=== PATIENT | male | born 1950 | race Caucasian/White ===

== ENCOUNTER → 2017-09-27 | Outpatient (CLI) | payer BC | END | disposition home or self-care (01) | LOC: KCIC MRI 11:35 | DX: M48.02 Spinal stenosis, cervical region (principal); M12.9 Arthropathy, unspecified; M25.78 Osteophyte, vertebrae; R60.0 Localized edema; R20.0 Anesthesia of skin | CPT/HCPCS: 72141 ==

== ENCOUNTER → 2017-10-15 | Outpatient (CLI) | payer BC ==
[~2017-10-15] MED LIST: IOHEXOL 180 MG/ML 10 ML VIAL.; methylPREDNISolone ACETATE 40 MG/ML VIAL.; methylPREDNISolone ACETATE 80 MG/ML VIAL.
== END | disposition home or self-care (01) ==
LOC: PNCL 13:11
DX: M50.123 Cervical disc disorder at C6-C7 level with radiculopathy (principal); M48.02 Spinal stenosis, cervical region; K21.9 Gastro-esophageal reflux disease without esophagitis; M19.90 Unspecified osteoarthritis, unspecified site; I10 Essential (primary) hypertension
CPT/HCPCS: 62321; J1030; J1040

== ENCOUNTER → 2017-10-29 | Outpatient (CLI) | payer BC | END | disposition home or self-care (01) | LOC: PNCL 14:20 | DX: M50.123 Cervical disc disorder at C6-C7 level with radiculopathy (principal); M48.02 Spinal stenosis, cervical region | CPT/HCPCS: 62321; J1030; J1040; Q9965 ==

== ENCOUNTER → 2018-05-17 | Outpatient (CLI) | payer BC ==
[~2018-05-17] MED LIST changes: +ACET325T9 PO; +ATOR20TA58 PO; +GABA600T2 PO; -IOHEXOL 180 MG/ML 10 ML VIAL.; +IOHEXOL 180 MG/ML 10 ML VIAL. ONE; +LIDOCAINE 2% PF 2ML VIAL. ONE; +LISI1TAB3 PO; +OMEP40CA5 PO; +TAMS0.4C2 PO; +TRAM50TA PO; -methylPREDNISolone ACETATE 40 MG/ML VIAL.; +methylPREDNISolone ACETATE 40 MG/ML VIAL. ONE; -methylPREDNISolone ACETATE 80 MG/ML VIAL.; +methylPREDNISolone ACETATE 80 MG/ML VIAL. ONE
--- NOTE | 2018-05-17 20:38 | PAIN ---
DATE OF SERVICE: 05/17/2018 DIAGNOSES: Cervical radiculopathy with cervical degenerative disk disease and cervical spinal stenosis. HISTORY OF PRESENT ILLNESS: The patient is a 68-year-old male who returns for followup status post cervical epidural steroid injections x 2, last seen 10/29/2017. The patient reports he did very well with this last injection about 80% improvement, especially for the first month or so. The patient reports pain is returning with some numbness in both of his upper extremities, somewhat worse on the left than the right, but the pain is more on the right shoulder and right arm than the left side. The patient reports no new motor or sensory deficits, no new bowel or bladder incontinence or other complaints. The patient reports his pain is a 7 on a scale of 10 at its worst, 6 on average, 5 at its least, and is a 5 today. The patient reports it is aching, tingling, currently more constant in the neck, but with good increased range of motion after his last injection with increased pain now in the right arm in the left hand. The patient reports it wakes him from sleep about every 4-5 hours, has to reposition to get back to sleep. PHYSICAL EXAMINATION: VITAL SIGNS: The patient's blood pressure is 139/81, pulse 59, respirations 18, temperature 98.3 degrees Fahrenheit, height is 5 feet 10 inches, weighs 208 pounds. GENERAL: The patient is awake, alert, oriented, appropriate, very pleasant demeanor. HEENT: Shows normocephalic, atraumatic. Extraocular movements are intact, symmetrical. Oral cavity: Mucous membranes moist and pink. Dentition is intact. NECK: Shows anterior throat supple without palpable lymphadenopathy noted. Swallow reflex is symmetrical. CHEST: Shows normal on inspection. Breath sounds clear to auscultation bilaterally. HEART: Shows S1, S2 clear. No murmurs auscultated. ABDOMEN: Soft, nontender, nondistended. No palpable organomegaly is noted. BACK: Shows spine grossly in the midline. Cervical paraspinous muscle shows symmetrical on inspection with normal cervical lordotic curvature and thoracic kyphotic curvature. Cervical paraspinous muscles are tender with palpation, but only diffusely in the inferior aspect of the cervical paraspinous musculature bilaterally, but symmetrical without trigger points, without radiation. The patient has full rotational motion of cervical spine including right and left lateral rotation greater than 45 degrees as well as full extension, full forward flexion without significant difficulty, but has superior medial trapezius slightly more tender on the right than the left, but again symmetrical without atrophy, hypertrophy or asymmetry. EXTREMITIES: Upper extremities show deep tendon reflexes 2+ in the biceps and triceps tendons. Motor exam is strong with practice specialist strength rated at 5/5 and equal. Peripheral pulses are 2+ radial. No peripheral edema is noted. Options were discussed with the patient. The patient's old chart was reviewed as is his current medication regimen updated. Current review of systems is updated today as well and we will proceed with a first in this series of cervical epidural steroid injection today with fluoroscopic guidance. Risks were again discussed including, but not limited to bleeding, infection, possibility of epidural hematoma and subsequent neurological compromise, dural puncture, headaches, spinal cord and/or nerve damage, side effects of steroid medication and poor results regarding pain control. The patient understands and wished to proceed. The patient will return to the clinic in approximately 2 weeks for followup, was counseled on return appointment, activity level and side effects to be aware of. DIAGNOSES: Cervical radiculopathy, cervical spinal stenosis, cervical degenerative disk disease. PROCEDURE: Cervical epidural steroid injection, translaminar approach at C6-C7 level using C-arm fluoroscopic guidance under sterile prep and drape using local anesthetic. MEDICATION INJECTED: A total of 120 mg Depo-Medrol plus 5 mL of preservative-free normal saline and 2 mL of Isovue for contrast. CONDITION AT DISCHARGE: Stable. The patient tolerated the procedure well, had no complications. LURDES JOSHI MD DR: DIPAK/master JOB#: [id number] / [id number]
== END | disposition home or self-care (01) ==
LOC: PNCL 09:00
PROVIDERS: ATTEND Anesthesiology
DX: M50.123 Cervical disc disorder at C6-C7 level with radiculopathy (principal); M48.02 Spinal stenosis, cervical region
CPT/HCPCS: 62321; J1030; J1040; J2001; Q9965

== ENCOUNTER → 2018-05-31 | Outpatient (CLI) | payer BC ==
[~2018-05-31] MED LIST changes: -IOHEXOL 180 MG/ML 10 ML VIAL. ONE; -LIDOCAINE 2% PF 2ML VIAL. ONE; -methylPREDNISolone ACETATE 40 MG/ML VIAL. ONE; -methylPREDNISolone ACETATE 80 MG/ML VIAL. ONE
--- NOTE | 2018-05-31 11:05 | KCIC ---
EXAMINATION: Magnetic resonance imaging (MRI) of the cervical spine without contrast 05/31/2018 8:45 AM HISTORY: Cervical radiculopathy. Bilateral upper extremity numbness. TECHNIQUE: Multiplanar multi-weighted MRI of the cervical spine was performed without intravenous contrast using the standard cervical spine protocol. Contrast information: None administered COMPARISON: MRI cervical spine September 27, 2017 FINDINGS: The alignment of the cervical spine is normal. Similar mild edema is identified involving the odontoid, improved since the prior examination. No acute fracture is identified; however, if trauma is suspected, a CT scan would be a more sensitive examination for fractures. The craniocervical junction is normal. The visualized portions of the skull base and the posterior fossa are normal. The spinal cord demonstrates normal signal intensity on all sequences. Disc heights are maintained. Mild multilevel disc desiccation is noted. No soft tissue abnormality is identified. Normal signal voids are present in the vertebral arteries. C2-C3: There is minimal posterior disc osteophyte complex asymmetric to the right. There is mild facet arthropathy. There is mild uncovertebral joint disease. There is mild right neuroforaminal stenosis. There is no spinal canal stenosis. C3-C4: There is a posterior disc osteophyte complex with central disc extrusion, progressed. There is moderate facet arthropathy. There is mild uncovertebral joint disease. There is moderate bilateral neuroforaminal stenosis. There is moderate spinal canal stenosis, exacerbated by ligamentum flavum infolding. No deformity of the cord is visualized. C4-C5: There is a posterior disc osteophyte complex. There is severe bilateral facet arthropathy. There is moderate uncovertebral joint disease. There is severe bilateral neuroforaminal stenosis. There is mild spinal canal stenosis. C5-C6: Posterior disc osteophyte complex. There is severe left and moderate right facet arthropathy. There is moderate uncovertebral joint disease. There is severe neuroforaminal stenosis. There is no spinal canal stenosis. C6-C7: There is a posterior disc osteophyte complex. There is severe facet arthropathy. There is severe uncovertebral joint disease. There is no neuroforaminal stenosis. There is no spinal canal stenosis. C7-T1: The disk is normal in configuration. There is moderate facet arthropathy. There is mild uncovertebral joint disease. There is moderate to severe bilateral neuroforaminal stenosis. There is no spinal canal stenosis. IMPRESSION: 1. Edema involving the dens appears improved with minimal residual compared to prior examination. 2. Moderate multilevel degenerative changes appears similar with worsening disc extrusion at C3-C4 resulting in now moderate spinal canal stenosis. Ligamentum flavum infolding exacerbates degree of stenosis. Electronically signed by: Lenore Tracey MD (05/31/2018 11:01 AM) [facility]
== END | disposition home or self-care (01) ==
LOC: KCIC MRI 08:22
PROVIDERS: ATTEND Anesthesiology
DX: M50.11 Cervical disc disorder with radiculopathy, high cervical region (principal); M48.02 Spinal stenosis, cervical region
CPT/HCPCS: 72141

== ENCOUNTER → 2018-06-21 | Outpatient (CLI) | payer BC ==
[~2018-06-21] MED LIST changes: +IOHEXOL 180 MG/ML 10 ML VIAL. ONE; +LIDOCAINE 2% PF 2ML VIAL. ONE; +methylPREDNISolone ACETATE 40 MG/ML VIAL. ONE; +methylPREDNISolone ACETATE 80 MG/ML VIAL. ONE
--- NOTE | 2018-06-21 23:51 | PAIN ---
DATE OF SERVICE: 06/21/2018 PROGRESS NOTE FOR PAIN CLINIC DIAGNOSES: Cervical radiculopathy with cervical degenerative disk disease and cervical spinal stenosis. HISTORY OF PRESENT ILLNESS: The patient is a 68-year-old male who returns for followup status post cervical epidural steroid injection x 1 with only about 10% improvement, although after a second injection earlier this year, he did do well with 80% improvement at that time. The patient reports still significant pain in the base of the neck, shoulders, more on the right upper extremity with tingling and numbness in the right arm as well. The patient did have a new MRI scan. We did cover that with him showing some increased changes at C3-C4. Otherwise, fairly stable from previous exam of September 2017. The patient reports still significant pain in the base of the neck, shoulder, especially in the right upper extremity with numbness and tingling. In the right arm and hand, the patient reports tingling, cramping, constant become more aching in quality as well as aching in the base of the neck. The patient reports it is an 8 on a scale of 10, 6 on average, 6 at its least and is a 6 today. The patient reports no new motor or sensory deficits. No new bowel or bladder incontinence or other complaints. PHYSICAL EXAMINATION: VITAL SIGNS: The patient's blood pressure is 130/82, pulse 75, respirations are 18, temperature 98.2 degrees Fahrenheit. Height is 5 feet 10 inches, weight is 202 pounds. GENERAL: The patient is awake, alert, oriented, appropriate, very pleasant demeanor. HEENT: Head shows normocephalic, atraumatic. Extraocular movements are intact and symmetrical. Oral cavity: Mucous membranes moist and pink. Dentition is intact. NECK: Shows anterior throat supple without palpable lymphadenopathy noted. Swallow reflex is symmetrical. CHEST: Shows normal on inspection. Breath sounds clear to auscultation bilaterally. HEART: Shows S1, S2 clear. No murmurs auscultated. ABDOMEN: Soft, nontender, nondistended. No palpable organomegaly noted. BACK: Shows spine grossly in the midline. Cervical lordotic curvature is maintained, as is thoracic lordotic curvature and lumbar lordotic curvature. Cervical paraspinous musculature shows symmetrical on inspection, on palpation shows some moderate tenderness diffusely, but only diffusely in the inferior aspect of the cervical paraspinous muscles and no more into the right superior medial trapezius in the left, but without atrophy without trigger points, without radiation. Neck shows good rotational motion of the cervical spine both laterally as well as extension and flexion without significant increase in pain. EXTREMITIES: The patient's upper extremities and deep tendon reflexes 2+ at the biceps and tricep tendons. Motor exam is strong with 5/5 assistant merchandiser strength, bicep and triceps flexion. Peripheral pulses are 2+ in radial distribution. No peripheral edema is noted. Options were discussed with the patient. The patient's old chart was reviewed. His current medication regimen. Current review of systems updated today as well. We will proceed with a cervical epidural steroid injection second in a series of fluoroscopic guidance. Risks were again discussed including, but not limited to, bleeding, infection, possibility of epidural hematoma and subsequent neurologic compromise, dural puncture, headaches, spinal cord and/or nerve damage, side effects of steroid medication and poor results regarding pain control. The patient understands and wished to proceed. The patient will return to the clinic in approximately 2 weeks for followup, was counseled as to return appointment, activity level and side effects to be aware of. DIAGNOSES: Cervical radiculopathy with cervical degenerative disk disease and cervical spinal stenosis. PROCEDURE: Cervical epidural steroid injection, translaminar approach at C6-C7 level using C-arm fluoroscopic guidance under sterile prep and drape using local anesthetic. MEDICATIONS INJECTED: A total of 120 mg Depo-Medrol plus 10 mL of preservative-free normal saline and 2 mL of Isovue for contrast. CONDITION AT DISCHARGE: Stable. The patient tolerated procedure well, had no complications. LURDES JOSHI MD DR: DIPAK/master JOB#: [id number] / [id number]
== END | disposition home or self-care (01) ==
LOC: PNCL 09:02
PROVIDERS: ATTEND Anesthesiology
DX: M50.123 Cervical disc disorder at C6-C7 level with radiculopathy (principal); M48.02 Spinal stenosis, cervical region
CPT/HCPCS: 62321; J1030; J1040; J2001; Q9965

== ENCOUNTER → 2018-11-08 | Outpatient (CLI) | payer OTHER ==
[~2018-11-08] MED LIST changes: -GABA600T2 PO; +GABA600T7 PO; -IOHEXOL 180 MG/ML 10 ML VIAL. ONE; -LIDOCAINE 2% PF 2ML VIAL. ONE; -methylPREDNISolone ACETATE 40 MG/ML VIAL. ONE; -methylPREDNISolone ACETATE 80 MG/ML VIAL. ONE
--- NOTE | 2018-11-08 20:49 | PAIN ---
DATE OF SERVICE: 11/08/2018 PROGRESS NOTE FOR PAIN CLINIC DIAGNOSES: Cervical radiculopathy with cervical spinal stenosis and cervical degenerative disk disease. HISTORY OF PRESENT ILLNESS: The patient is a 68-year-old male who returns for followup status post cervical epidural steroid injection, most recently 06/21/2018. The patient did very well with an 80% improvement in the pain in his neck and right upper extremity. The patient reports it is beginning to return now over the past month or so in the right shoulder, right posterior upper arm, anterior arm, biceps and anterior forearm, into the thumb and first and second fingers on the right hand. It is aching and numbness, dull at times, tingling pain in the arm with burning and radiating pain shooting into the arm itself on the right side. The patient reports some pain in the base of the neck bilaterally, but worse on the right. The patient reports it is a 7 on a scale of 10 at its worst, 7 on average and a 5 at its least. The patient reports it is 7 today. He reports no loss of motor function, but significant fatigability with use of the right upper extremity and has been dropping items with his right hand frequently, especially small items such as tools and glasses and cups. The patient reports no significant pain on the left side, but occasionally some radiating pain in the left shoulder. The patient reports no new changes. The patient reports the pain awakens him from sleep at night about every 4-5 hours. He can usually reposition but he lies on his right side. It does keep him from sleeping. PHYSICAL EXAMINATION: VITAL SIGNS: The patient's blood pressure is 145/78, pulse 77, respirations 18, temperature 98.1 degrees Fahrenheit, height is 5 feet 10 inches and weight is 198 pounds. GENERAL: The patient is awake, alert, oriented, appropriate, very pleasant demeanor. HEENT: Head shows normocephalic, atraumatic. Extraocular movements are intact and symmetrical. Oral cavity: Mucous membranes moist and pink. Dentition is intact. NECK: Shows anterior throat supple without palpable lymphadenopathy noted. Swallow reflex is symmetrical. CHEST: Shows normal with inspection. Breath sounds clear to auscultation bilaterally. HEART: Shows S1, S2 clear. No murmurs auscultated. ABDOMEN: Soft, nontender, nondistended. No palpable organomegaly is noted. No rebound or guarding demonstrated. BACK: Shows spine grossly in the midline, normal-appearing cervical lordotic curvature, thoracic kyphotic curvature and lumbar lordotic curvature. The patient's neck shows good rotational motion with some moderate tenderness with extension, but not with forward flexion. Right and left lateral rotation is performed without significant difficulty past 45 degrees closer to 90 degrees without significant pain reported. EXTREMITIES: Upper extremities show deep tendon reflexes 2+ in the biceps and triceps tendons. Motor exam is 5/5 on the left and 4/5 on the right with physiology teacher strength, bicep and tricep flexion likewise is 4/5 right, 5/5 on the left. Peripheral pulses are 2+ radial distribution. No peripheral edema is noted. Shoulder shrug is strong and intact with some moderate tenderness with palpation with resistance on the right side only, but without loss of strength with resistance. This is true with abduction of the shoulder to 90 degrees. Moderate pain with resistance on the right, but not with the left and without loss of strength on resistance. Options were discussed with the patient. The patient's old chart was reviewed as his current medication regimen updated. Current review of systems updated today as well and we will preauthorize the patient for a cervical epidural steroid injection. He did very well with his last injection, 80% improvement of radicular pain following a C6 and C7 dermatomal distribution of the right arm. We will plan on a C6-C7 translaminar cervical epidural steroid injection on return. The patient will continue to do some strengthening and stretching exercises. He can do his mobility exercises with his neck and shoulders as well. We will encourage him to keep doing this. Also, the patient did have physical therapy, but it has been some time ago, but still does exercises from those by his report. The patient was given a Medrol Dosepak in the meantime as well with instructions of side effects to be aware of and see if this may help decrease the pain while insurance preauthorization is obtained. LURDES JOSHI MD DR: DIPAK/master JOB#: [id number] / [id number]
== END | disposition home or self-care (01) ==
LOC: PNCL 09:41
PROVIDERS: ATTEND Anesthesiology
DX: M48.02 Spinal stenosis, cervical region (principal); M50.10 Cervical disc disorder with radiculopathy, unspecified cervical region
CPT/HCPCS: G0463

== ENCOUNTER → 2018-11-21 | Outpatient (CLI) | payer OTHER ==
[~2018-11-21] MED LIST changes: +IOHEXOL 180 MG/ML 10 ML VIAL. ONE; +methylPREDNISolone ACETATE 40 MG/ML VIAL. ONE; +methylPREDNISolone ACETATE 80 MG/ML VIAL. ONE
--- NOTE | 2018-11-21 22:27 | PAIN ---
DATE OF SERVICE: 11/21/2018 PROGRESS NOTE FOR PAIN CLINIC DIAGNOSES: Cervical radiculopathy with cervical spinal stenosis and cervical degenerative disk disease. HISTORY OF PRESENT ILLNESS: The patient is a 68-year-old male who returns for followup status post cervical epidural steroid injections most recently on 06/21/2018. The patient did well with these. He had been waiting for preauthorization with his insurance provider and he has obtained this now after his last visit, which was 11/08/2018. Still with pain in the base of the neck, right shoulder, right upper extremity, right arm with weakness and fatigue in the right arm as well. The patient reports his pain is a 9 on a scale of 10 at its worst, 8 on average, 6 at its least and it is an 8 today. The patient reports it is tingling, aching, sharp, shooting, becoming more constant, more noticeable in the right arm with repetitive motions, lifting items, any weightbearing at all and had to have his left arm help raise his right arm when he is using it for any activities. The patient reports it awakens him from sleep about every 4 hours. Reports no new motor or sensory deficits. No new bowel or bladder incontinence or other complaints. PHYSICAL EXAMINATION: VITAL SIGNS: The patient's blood pressure is 119/75, pulse 75, respirations 18 and temperature 98.2 degrees Fahrenheit. Height is 5 feet 10 inches, weighs 199 pounds. GENERAL: The patient is awake, alert, oriented and appropriate. He has very pleasant demeanor. HEENT EXAMINATION: Shows normocephalic, atraumatic. Extraocular movements are intact and symmetrical. Oral cavity, mucous membranes moist and pink. Dentition is intact. NECK: Shows anterior throat supple, without palpable lymphadenopathy noted. Swallow reflex is symmetrical. CHEST: Shows normal on inspection. Breath sounds are clear to auscultation bilaterally. HEART: Shows S1, S2 clear. No murmurs auscultated. ABDOMEN: Soft, nontender and nondistended. No palpable organomegaly is noted. No rebound or guarding demonstrated. BACK: Shows spine grossly in the midline. Normal-appearing thoracic kyphosis and lumbar lordotic curvature. Cervical lordotic curvature shows slightly flattened with inspection. On palpation, paraspinous musculature of the cervical distribution shows moderate tenderness, but only diffusely in the low cervical distribution of the paraspinous muscles bilaterally and into the right superior medial trapezius. The patient shows good rotational motion, however, of the cervical spine, both laterally as well as extension and flexion, without significant difficulty. EXTREMITIES: Upper extremities show deep tendon reflexes 2+ in the biceps and triceps tendons. Motor exam is approximately 4 on a scale of 5 on the right and 5/5 on the left. Peripheral pulses are 2+ radial distribution. No peripheral edema is noted bilaterally. Options were discussed with the patient. The patient's old chart was reviewed as was his current medication regimen updated. Current review of systems updated today as well. We will proceed with a cervical epidural steroid injection today with fluoroscopic guidance. Risks were again discussed including, but not limited to bleeding, infection, possibility of epidural hematoma, subsequent neurological compromise, dural puncture, headaches, spinal cord and/or nerve damage, side effects to steroid medication and poor results regarding pain control. The patient understands and wishes to proceed. The patient will return to the clinic in approximately 2 weeks for followup. He was counseled on return appointment, activity level and side effects to be aware of. DIAGNOSES: Cervical radiculopathy, cervical spinal stenosis and cervical degenerative disk disease. PROCEDURE: Cervical epidural steroid injection in translaminar approach at the C6-C7 level using C-arm fluoroscopic guidance under sterile prep and drape using local anesthetic. MEDICATION INJECTED: A total of 120 mg Depo-Medrol plus 5 mL of preservative-free normal saline and 2 mL of Isovue for contrast. CONDITION AT DISCHARGE: Stable. The patient tolerated the procedure well, had no complications. LURDES JOSHI MD DR: DIPAK/master JOB#: [id number] / [id number]
== END | disposition home or self-care (01) ==
LOC: PNCL 14:09
PROVIDERS: ATTEND Anesthesiology
DX: M50.123 Cervical disc disorder at C6-C7 level with radiculopathy (principal); M48.02 Spinal stenosis, cervical region
CPT/HCPCS: 62321; J1030; J1040; Q9965

== ENCOUNTER → 2018-12-05 | Outpatient (CLI) | payer OTHER ==
[~2018-12-05] MED LIST changes: -IOHEXOL 180 MG/ML 10 ML VIAL. ONE; -methylPREDNISolone ACETATE 40 MG/ML VIAL. ONE; -methylPREDNISolone ACETATE 80 MG/ML VIAL. ONE
--- NOTE | 2018-12-05 23:21 | PAIN ---
DATE OF SERVICE: 12/05/2018 DIAGNOSES: Cervical radiculopathy with cervical degenerative disk disease and cervical spinal stenosis. HISTORY OF PRESENT ILLNESS: The patient is a 68-year-old male who returns for followup status post cervical epidural steroid injection x 1. The patient reports about 50% improvement in the neck and bilateral shoulders and upper extremities and is still doing well through this time. It has been about 3 weeks since his last injection, reports the pain can be as high as an 8 on a scale of 10, they average about 7, at its least is 5 and is 5 today. The patient reports it is an aching, dull, tingling, burning, becoming more constant with time in the base of the neck and shoulders, radiating to the upper extremities, right greater than the left into the deltoid, into the bicep as well as into the forearm with some tingling and numbness in the right hand. The patient reports right shoulder is more painful to move than the left one, but it is getting by over the most part. The patient was increasing his activity with greater distances walking, greater ability to do household and work activities. 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 The patient reports no new motor or sensory deficits, no new changes. PHYSICAL EXAMINATION: VITAL SIGNS: The patient's blood pressure is 129/77, pulse 73, respirations are 18, temperature is 98.2 degrees Fahrenheit, height is 5 feet 10 inches, weighs is 198 pounds. GENERAL: The patient is awake, alert, oriented, appropriate. The patient is accompanied by his spouse. HEENT: Head is normocephalic, atraumatic. Extraocular movements are intact and symmetrical. Oral cavity: Mucous membranes moist and pink. Dentition is intact. NECK: Shows anterior throat supple without palpable lymphadenopathy noted. Swallow reflex symmetrical. CHEST: Shows normal on inspection. Breath sounds clear to auscultation bilaterally. HEART: Shows S1, S2 clear. No murmurs auscultated. ABDOMEN: Soft, nontender, nondistended. No palpable organomegaly is noted. No rebound or guarding demonstrated. BACK: Shows spine grossly in the midline, normal-appearing cervical lordotic curvature, some slight increase in thoracic kyphotic curvature. Cervical paraspinous muscle shows symmetrical on inspection. On palpation shows some moderate tenderness diffusely with palpation, but only diffusely in the middle and lower distribution of paraspinous musculature, slightly more on the right than the left. This is true into the superior medial and lateral trapezius on the right with more tenderness, but no trigger points, no atrophy, hypertrophy and no asymmetry. The patient has good rotational motion of cervical spine, both laterally greater than 45 degrees right and left as well as forward flexion and full extension without significant increase in pain. EXTREMITIES: The patient's upper extremities show deep tendon reflexes 2+ in the biceps and triceps tendons. Motor exam is approximately 4 on a scale of 5 on the right with hearing consultant strength and 5/5 on the left. Peripheral pulses are 2+ radial distribution. No peripheral edema is noted bilaterally. Options were discussed with the patient. The patient's old chart was reviewed as was his current medication regimen updated. Current review of systems updated today as well. We will preauthorize the patient for a second cervical epidural steroid injection. He is doing much better, about 50% improvement for the first 3 weeks following the last injection, still has some radicular pain in the C6-C7 dermatomal distribution. We will plan on a C6-C7 translaminar injection #2 once approved. The patient in the meantime will continue doing stretching and strengthening exercises and doing rotation of motion of the shoulders as he has been doing as well as with some massage techniques for the neck. The patient will follow up in approximately 1 week and plan on second cervical epidural steroid injection at that time. LURDES JOSHI MD DR: DIPAK/master JOB#: [id number] / [id number]
== END | disposition home or self-care (01) ==
LOC: PNCL 12:11
PROVIDERS: ATTEND Anesthesiology
DX: M50.10 Cervical disc disorder with radiculopathy, unspecified cervical region (principal); M48.02 Spinal stenosis, cervical region
CPT/HCPCS: G0463

== ENCOUNTER → 2018-12-19 | Outpatient (CLI) | payer MEDICARE, OTHER ==
[~2018-12-19] MED LIST changes: +IOHEXOL 180 MG/ML 10 ML VIAL. ONE; +methylPREDNISolone ACETATE 40 MG/ML VIAL. ONE; +methylPREDNISolone ACETATE 80 MG/ML VIAL. ONE
--- NOTE | 2018-12-20 07:48 | PAIN ---
DATE OF SERVICE: 12/19/2018 PROGRESS NOTE FOR PAIN CLINIC DIAGNOSES: Cervical radiculopathy with cervical degenerative disk disease and cervical spinal stenosis. HISTORY OF PRESENT ILLNESS: The patient is a 68-year-old male who returns for followup status post cervical epidural steroid injection x 1. The patient has been preauthorized for second injection and would like to proceed with that today. The patient reports still pain in the base of the neck and right greater than left upper extremity, shoulder and arm with radiating pain, tingling and numbness in both hands. The patient reports the pain is 8 on a scale of 10 at its worst, 5 on average, 5 at its least and is a 5 today. The patient reports it is aching, tingling feeling more constant with activity, repetitive motion of the upper extremities, reaching over his head with his arms. The patient reports it awakens him from sleep at night at least about every 4 hours or so, usually repositions and get back to sleep. The patient reports no new motor or sensory deficits, no new bowel or bladder incontinence. PHYSICAL EXAMINATION: VITAL SIGNS: The patient on physical exam shows a blood pressure of 117/81, pulse is 77, respirations are 18, temperature 98.3 degrees Fahrenheit, height is 5 feet 10 inches, weight is 197 pounds. GENERAL: The patient is awake, alert, oriented, appropriate, very pleasant demeanor. HEENT: Head shows normocephalic and atraumatic. Extraocular movements are intact and symmetrical. Oral cavity: Mucous membranes are moist and pink. Dentition is intact. NECK: Shows anterior throat is supple without palpable lymphadenopathy noted. Swallow reflex is symmetrical. CHEST: Shows normal on inspection. Breath sounds are clear to auscultation bilaterally. HEART: Shows S1 and S2 clear. No murmurs are auscultated. ABDOMEN: Soft, nontender and nondistended. No palpable organomegaly is noted. No rebound or guarding demonstrated. BACK: Shows spine grossly in the midline. Normal appearing thoracic kyphosis and lumbar lordotic curvature as well as cervical lordotic curvature. Cervical paraspinous muscle shows symmetrical on inspection. With palpation shows some moderate tenderness in the middle and lower distribution of the paraspinous musculature, slightly more to the right than the left, but essentially equal bilaterally. The patient shows good rotational motion of the cervical spine both laterally greater than 45 degrees as well as full extension, full forward flexion without significant pain reported. EXTREMITIES: The patient's upper extremities show deep tendon reflexes 2+ in the biceps, triceps tendons. Motor exam is strong at approximately 4 on a scale of 5 with right manufacturing engineering manager strength and 5/5 on the left. Peripheral pulses are 1+ posterior tibial. No peripheral edema is noted. Options were discussed with the patient. The patient's old chart was reviewed as was his current medication regimen updated. Current review of systems updated today as well. We will proceed with a second in this series of cervical epidural steroid injection today with fluoroscopic guidance. Risks were again discussed including, but not limited to bleeding, infection, possibility of epidural hematoma, subsequent neurological compromise, dural puncture, headaches, spinal cord and/or nerve damage, side effects of steroid medication and poor results regarding pain control. The patient understands and wished to proceed. The patient will return to the clinic in approximately 2 weeks for followup, was counseled as to return appointment, activity level and side effects to be aware of. DIAGNOSES: Cervical radiculopathy with cervical degenerative disk disease and cervical spinal stenosis. PROCEDURE: Cervical epidural steroid injection, translaminar approach at C6-C7 level using C-arm fluoroscopic guidance under sterile prep and drape using local anesthetic. MEDICATION INJECTED: A total of 120 mg Depo-Medrol plus 5 mL of preservative-free normal saline and 2 mL of Isovue for contrast. CONDITION AT DISCHARGE: Stable. The patient tolerated the procedure well and had no complications. LURDES JOSHI MD DR: DIPAK/master JOB#: [id number] / [id number]
== END | disposition home or self-care (01) ==
LOC: PNCL 14:08
PROVIDERS: ATTEND Anesthesiology
DX: M50.123 Cervical disc disorder at C6-C7 level with radiculopathy (principal); M48.02 Spinal stenosis, cervical region
CPT/HCPCS: 62321; J1030; J1040; Q9965

== ENCOUNTER → 2019-08-29 | Outpatient (CLI) | payer OTHER, MEDICARE ==
[~2019-08-29] MED LIST changes: -IOHEXOL 180 MG/ML 10 ML VIAL. ONE; +LISI1TAB23 PO; -LISI1TAB3 PO; +OMEP40CA45 PO; -OMEP40CA5 PO; -methylPREDNISolone ACETATE 40 MG/ML VIAL. ONE; -methylPREDNISolone ACETATE 80 MG/ML VIAL. ONE
--- NOTE | 2019-08-29 11:44 | PAIN ---
DATE OF SERVICE: 08/29/2019 PROGRESS NOTE FOR PAIN CLINIC DIAGNOSES: Cervical radiculopathy with cervical degenerative disk disease and cervical spinal stenosis. HISTORY OF PRESENT ILLNESS: The patient is a 69-year-old male, who returns for followup status post cervical epidural steroid injection x 2. Most recently on 12/19/2018, the patient had 75% improvement for about 6 months. The patient reports the pain began to return in the latter part of June in the base of the neck and shoulders, worse on the right than the left, radiating to the right upper extremity, right bicep, right forearm, right hand and fingers with numbness and tingling, more on the right than the left, but present bilaterally as well as the base of neck and shoulders, upper back. The patient reports it is an 8 on a scale of 10 at its worst, 7 on average, 4 at its least and is a 7 today. The patient reports it is aching, tingling, constant, worse with activity, worse with repetitive motions, reaching over his head with his right hand, awakens from sleep now over the past month or so about every 5 hours. The patient reports before that he is doing much better with distance walking, doing work activities, household activities and sleeping better at night without any deficits. The patient reports now it is returning again in a radicular fashion on the right side at the C6-C7 dermatomal distribution as it had previously. PHYSICAL EXAMINATION: VITAL SIGNS: The patient's blood pressure 115/73, pulse 69, respirations 16, and temperature 97.8 degrees Fahrenheit. Height is 5 feet 10 inches, weight is 200 pounds. GENERAL: The patient is awake, alert, oriented, appropriate, very pleasant demeanor. HEENT: Shows normocephalic, atraumatic. Extraocular movements are intact and symmetrical. Oral cavity: Mucous membranes moist and pink. Dentition is intact. NECK: Shows anterior throat supple without palpable lymphadenopathy noted. Swallow reflex symmetrical. CHEST: Shows normal on inspection. Breath sounds clear bilaterally. HEART: Shows S1, S2 clear. No murmurs auscultated. ABDOMEN: Soft, nontender, nondistended. No palpable organomegaly is noted. No rebound or guarding demonstrated. BACK: Shows spine grossly in the midline. Cervical lordotic curvature is maintained as is thoracic kyphotic curvature. Cervical paraspinous muscle shows symmetrical on inspection, with palpation shows some moderate tenderness diffusely inferior aspect of the cervical paraspinous musculature, more on the right than the left, but present bilaterally without specific trigger points or radiation. The patient has good rotational motion of cervical spine, both laterally as well as extension and flexion without significant increase in pain. EXTREMITIES: The patient's upper extremities show deep tendon reflexes 2+ in the biceps and triceps tendons. Motor exam is approximately 4 on a scale of 5 with right field recruiter strength and 5/5 on the left. It is true with bicep and tricep flexion as well, 4/5 on the right, 5/5 on the left. Peripheral pulses are 2+ radial. No peripheral edema is noted bilaterally. The patient's shoulder shrug is strong and intact with some moderate tenderness on the right side, but no loss of strength on resistance. This is true with abduction of the shoulders at 90 degrees with some moderate tenderness with resistance on the right only and reproduction of pain in the base of the neck and radiating into the posterior shoulder with this maneuver. ASSESSMENT AND PLAN: Options were discussed with the patient. The patient's old chart was reviewed as his current medication regimen updated. Current review of systems is updated today as well. We will preauthorize the patient for a cervical epidural steroid injection. He did very well with it in the past, about 75% improvement for several months. Pain is returning over about the past month or so in the base of neck, bilateral upper extremities, right greater than left, following a C6-C7 dermatomal distribution into the right arm and hand with numbness and tingling in the hand and fingers with some loss of strength on the right side as well. We will preauthorize the patient for a translaminar C6-C7 level cervical epidural steroid injection. In the meantime, the patient will try Medrol Dosepak, as he has done well with these in the past. Given instruction as well as side effects to be aware of with the medication, we will follow up in approximately 1 week after preauthorization for cervical epidural steroid injection at that time. The patient will continue doing strengthening and stretching exercises as he is doing on his own and staying active as tolerated. LURDES JOSHI MD DR: DIPAK/master JOB#: [id number] / [id number]
== END | disposition home or self-care (01) ==
LOC: PNCL 10:20
PROVIDERS: ATTEND Anesthesiology
DX: M50.10 Cervical disc disorder with radiculopathy, unspecified cervical region (principal); M48.02 Spinal stenosis, cervical region
CPT/HCPCS: G0463

== ENCOUNTER → 2019-09-12 | Outpatient (CLI) | payer OTHER, MEDICARE ==
[~2019-09-12] MED LIST changes: +IOHEXOL 180 MG/ML 10 ML VIAL. ONE; +methylPREDNISolone ACETATE 40 MG/ML VIAL. ONE; +methylPREDNISolone ACETATE 80 MG/ML VIAL. ONE
--- NOTE | 2019-09-12 12:23 | PAIN ---
DATE OF SERVICE: 09/12/2019 PROGRESS NOTE FOR PAIN CLINIC DIAGNOSES: Cervical radiculopathy with cervical degenerative disk disease and cervical spinal stenosis. HISTORY OF PRESENT ILLNESS: The patient is a 69-year-old male who returns for followup status post cervical epidural steroid injections, most recently in December of this year. The patient did very well with about 75% improvement. The patient reports the pain began to return in the base of neck and right upper extremity. We are waiting for preauthorization with insurance provider. He has obtained that now and would like to proceed today. The patient reports still significant pain in the base of the neck, right upper extremity, right arm, into the forearm and into the anterior aspect of the forearm and biceps, rates 8 on a scale of 10 at its worst over the past week, 5 on average, 5 at its least and is a 5 today. The patient reports it is aching, tingling, becoming more constant with repetitive motions, reaching over his head with his right arm, weight lifting or driving a car, using his right arm for repetitive motions. The patient reports no new motor or sensory deficits, no new bowel or bladder incontinence. Reports it does awaken him from sleep about every 4 hours, especially if he lies on his right side. PHYSICAL EXAMINATION: VITAL SIGNS: The patient's blood pressure 132/79, pulse 55, respirations 16, temperature 98.1 degrees Fahrenheit, height is 5 feet 10 inches, weighs 198 pounds. GENERAL: The patient is awake, alert, oriented, appropriate, very pleasant demeanor. HEENT: Shows normocephalic, atraumatic. Extraocular movements are intact and symmetrical. Oral cavity: Mucous membranes moist and pink. Dentition is intact. NECK: Shows anterior throat supple without palpable lymphadenopathy noted. Swallow reflex symmetrical. CHEST: Shows normal on inspection. Breath sounds clear to auscultation bilaterally. HEART: Shows S1, S2 clear. No murmurs auscultated. ABDOMEN: Soft, nontender, nondistended. No palpable organomegaly is noted. BACK: Shows spine grossly in the midline. Cervical paraspinous muscle shows normal cervical lordotic curvature, slight increase in thoracic kyphotic curvature. Cervical paraspinous muscles are tender with palpation, however, bilaterally, but only diffusely in the inferior aspect of the cervical paraspinous muscles and superior medial trapezius and lateral trapezius, more on the right than the left, but without trigger points, without radiation. The patient has good rotational motion of the cervical spine, both laterally greater than 45 degrees as well as full extension, full forward flexion without significant increase in pain. EXTREMITIES: Upper extremities show deep tendon reflexes 2+ in the biceps, triceps tendons. Motor exam is approximately 4 on a scale of 5 with right chin strap maker strength 5/5 on the left. Biceps and triceps flexion likewise 4/5 right, 5/5 on the left. Peripheral pulses are 2+ radial distribution. No peripheral edema bilaterally. Options were discussed with the patient. The patient's old chart was reviewed as his current medication regimen updated. Current review of systems updated today as well. We will proceed with a cervical epidural steroid injection, today is the first in this series with fluoroscopic guidance. Risks were again discussed including, but not limited to bleeding, infection, possibility of epidural hematoma, subsequent neurological compromise, dural puncture, headaches, spinal cord and/or nerve damage, side effects of steroid medication and poor results regarding pain control. The patient understands and wished to proceed. The patient will return to clinic in approximately 2 weeks for followup. He was counseled on return appointment, activity level and side effects to be aware of. DIAGNOSES: Cervical radiculopathy with cervical degenerative disk disease and cervical spinal stenosis. PROCEDURE: Cervical epidural steroid injection, translaminar approach C6-C7 level using C-arm fluoroscopic guidance under sterile prep and drape using local anesthetic. MEDICATION INJECTED: A total of 120 mg Depo-Medrol plus 5 mL of preservative-free normal saline and 2 mL of contrast. CONDITION AT DISCHARGE: Stable. The patient tolerated procedure well, had no complications. LURDES JOSHI MD DR: DIPAK/master JOB#: [id number] / [id number]
== END ==
LOC: PNCL 08:06
PROVIDERS: ATTEND Anesthesiology
DX: M51.16 Intervertebral disc disorders with radiculopathy, lumbar region (principal); M48.02 Spinal stenosis, cervical region
CPT/HCPCS: 62321; J1030; J1040; Q9965